=== PATIENT | male | born 1955 | race Caucasian/White ===

== ENCOUNTER 2016-07-07 21:48 | Inpatient (IN) ==
[2016-07-07] MEDS ORDERED: 0.9 % Sodium Chloride 1,000 ML IVC ONE (21:52)
[2016-07-07] MEDS ORDERED: Ipratropium/Albuterol Neb 3 ML IH ONE (21:52)
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
[2016-07-07 22:24] LABS: Basophils # 0.1 K/mcL (0.0-0.2); Basophils % 0.6 %; Eosinophils # 0.6 K/mcL (0.0-0.6); Eosinophils % 4.4 %; Hematocrit 32.6 % (37.5-50.1); Hemoglobin 9.9 g/dL (12.9-16.9); Immature Granulocytes % 3.7 % (0-4); Immature Platelets 1.4 % (1.1-6.1); Lymphocytes # 1.9 K/mcL (0.6-4.6); Lymphocytes % 13.5 %; Mean Corpuscular HGB Conc 30.4 g/dL (31.6-35.5); Mean Corpuscular Hemoglobin 26.3 pg (28.0-33.3); Mean Corpuscular Volume 86.5 fL (83.0-100.0); Mean Platelet Volume 8.4 fL (9.4-12.4); Monocytes # 1.9 K/mcL (0.0-1.3); Monocytes % 13.1 %; Neutrophils # 9.3 K/mcL (1.6-8.9); Platelet Count 570 K/mcL (140-400); Red Blood Count 3.77 M/mcL (4.19-5.50); Red Cell Distribution Width 17.5 % (11.5-14.5); Segmented Neutrophils % 64.7 %
[2016-07-07 22:36] LABS: BUN/Creatinine Ratio 30 (6-26); Blood Urea Nitrogen 26 mg/dL (8-26); Calcium 9.5 mg/dL (8.6-10.8); Carbon Dioxide 31 mEq/L (19-29); Chloride 95 mEq/L (98-109); Glucose 117 mg/dL (70-99); Osmolality,Calculated 292 (280-300); Potassium 3.8 mEq/L (3.5-4.5); Sodium 138 mEq/L (136-145); eGFR For African Americans > 60 (> 60); eGFR For Non-African Americans > 60 (> 60)
[2016-07-07] MEDS ORDERED: Levofloxacin 750 MG/150 ML 750 MG/150 ML BAG IVPB ONE (23:23)
[2016-07-07] MEDS ORDERED: Piperacillin/Tazobactam 3.375 GM in D5% in Water (Mini-Bag+) 100 ML IVPB ONE (23:23)
[2016-07-07] MEDS ORDERED: Vancomycin 1,250 MG in D5% in Water 250 ML IVPB ONE (23:23)
[2016-07-07] MEDS ORDERED: 0.9 % Sodium Chloride 1,000 ML IV ONE (23:24)
[2016-07-08] MEDS ORDERED: Acetaminophen 325 MG TABLET PO PRN (03:18)
[2016-07-08] MEDS ORDERED: Naloxone 0.4 MG/ML INJ IVP PRN (03:18)
[2016-07-08] MEDS ORDERED: Albuterol 2.5 MG/3 ML NEBULIZER IH PRN (03:18)
[2016-07-08] MEDS ORDERED: *HR* OxyCODONE Oral Soln 5 MG/5 ML UD.LIQ GTUBE PRN (03:28)
[2016-07-08] MEDS ORDERED: Scopolamine Patch 1.5 MG PATCH.TD72 TP SCH (03:30)
[2016-07-08] MEDS ORDERED: 0.9 % Sodium Chloride w KCl 20 MEQ/1,000 ML MLS IVC SCH (03:30)
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
[2016-07-08] MEDS ORDERED: Vancomycin (wt based) 1,000 MG VIAL IVPB SCH (04:00)
[2016-07-08] MEDS: Erythromycin OPTH Oint BOTH EYES SCH ×2 (04:09→11:31)
[2016-07-08] MEDS: Ipratropium/Albuterol Neb 3 ML IH SCH ×3 (04:14→16:23)
[2016-07-08 04:32] LABS: Basophils % 0.3 %; Eosinophils # 0.7 K/mcL (0.0-0.6); Eosinophils % 5.6 %; Hematocrit 27.1 % (37.5-50.1); Immature Granulocytes % 3.9 % (0-4); Lymphocytes # 1.7 K/mcL (0.6-4.6); Lymphocytes % 14.3 %; Mean Corpuscular HGB Conc 30.3 g/dL (31.6-35.5); Mean Corpuscular Hemoglobin 26.4 pg (28.0-33.3); Mean Corpuscular Volume 87.1 fL (83.0-100.0); Monocytes # 1.8 K/mcL (0.0-1.3); Monocytes % 15.2 %; Neutrophils # 7.3 K/mcL (1.6-8.9); Platelet Count 419 K/mcL (140-400); Red Blood Count 3.11 M/mcL (4.19-5.50); Red Cell Distribution Width 17.8 % (11.5-14.5); Segmented Neutrophils % 60.7 %
[2016-07-08] MEDS: *HR* Heparin 5,000 UNIT/ML VIAL SQ SCH ×2 (04:37→11:31)
[2016-07-08 04:48] LABS: Alanine Aminotransferase 60 Units/L (0-55); Albumin 2.2 g/dL (3.5-5.0); Albumin/Globulin Ratio 0.5 (1.1-2.2); Alkaline Phosphatase 116 Units/L (38-126); Aspartate Amino Transferase 55 Units/L (5-34); BUN/Creatinine Ratio 28 (6-26); Bilirubin,Total 0.2 mg/dL (0.2-1.2); Blood Urea Nitrogen 22 mg/dL (8-26); Calcium 8.5 mg/dL (8.6-10.8); Carbon Dioxide 30 mEq/L (19-29); Chloride 98 mEq/L (98-109); Globulin 4.8 g/dL (2.4-3.5); Glucose 104 mg/dL (70-99); Hemoglobin 8.2 g/dL (12.9-16.9); Magnesium 1.4 mg/dL (1.6-2.6); Osmolality,Calculated 288 (280-300); Sodium 137 mEq/L (136-145); eGFR For African Americans > 60 (> 60); eGFR For Non-African Americans > 60 (> 60)
[2016-07-08] MEDS ORDERED: Magnesium Sulfate 2 GM in D5% in Water 100 ML IVPB ONE (08:54)
[2016-07-08] MEDS ORDERED: levETIRAcetam 500 MG/5 ML UDC GTUBE SCH (09:00)
[2016-07-08] MEDS ORDERED: *HR* HYDROmorphone 2 MG TABLET GTUBE SCH (09:00)
[2016-07-08] MEDS ORDERED: Multivit/Ca/Min/Fe/FA 1 TAB TABLET GTUBE SCH (09:00)
[2016-07-08] MEDS ORDERED: Levofloxacin 750 MG/150 ML 750 MG/150 ML BAG IVPB SCH (09:00)
[2016-07-08] MEDS ORDERED: 0.9 % Sodium Chloride 1,000 ML IVC SCH (09:00)
[2016-07-08] MEDS ORDERED: Gabapentin 300 MG CAPSULE GTUBE SCH (09:00)
[2016-07-08] MEDS ORDERED: Calcium Acetate 667 MG CAPSULE GTUBE SCH (09:00)
[2016-07-08] MEDS ORDERED: SELENIUM 200 MCG GTUBE SCH (09:00)
[2016-07-08] MEDS ORDERED: SELENIUM 40 MCG/ML IV SCH (09:00)
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
[2016-07-08] MEDS: Piperacillin/Tazobactam 3.375 GM in D5% in Water (Mini-Bag+) 100 ML IVPB SCH ×2 (09:59→16:42)
[2016-07-08] MEDS: Artificial Tears SOLN 15 ML BOTTLE BOTH EYES SCH ×3 (09:59→16:31)
[2016-07-08] MEDS ORDERED: Albuterol 2.5 MG/3 ML NEBULIZER IH SCH (10:00)
[2016-07-08] MEDS ORDERED: Lidocaine -MPF 1% 5 ML AMPUL INFILT ONE (10:22)
[2016-07-08] MEDS: Acetylcysteine 10% 2 ML INHSOL IH SCH ×2 (10:36→16:23)
[2016-07-08] MEDS ORDERED: Vancomycin 1,500 MG in D5% in Water 250 ML IVPB SCH (11:00)
--- NOTE | 2016-07-08 15:03 | Electrocardiograph Report ---
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
[2016-07-08 15:42] VITALS: BP 104/58
[2016-07-08] MEDS ORDERED: Aminoglycoside Consult 1 EACH MC ONE (18:19)
[2016-07-08] MEDS ORDERED: Famotidine 20 MG TABLET GTUBE SCH (21:00)
[2016-07-08] MEDS ORDERED: Ascorbic Acid 500 MG TABLET GTUBE SCH (21:00)
[2016-07-08] MEDS ORDERED: XIFAXAN 550 MG GTUBE SCH (21:00)
[2016-07-09 00:26] LABS: Acinetobacter baumannii by PCR Not Detected (Not Detect); Candida albicans by PCR Not Detected (Not Detect); Candida glabrata by PCR Not Detected (Not Detect); Candida krusei by PCR Not Detected (Not Detect); Candida parapsilosis by PCR Not Detected (Not Detect); Candida tropicalis by PCR Not Detected (Not Detect); Escherichia coli by PCR Not Detected (Not Detect); Klebsiella oxytoca by PCR Not Detected (Not Detect); Klebsiella pneumoniae by PCR Not Detected (Not Detect); Pseudomonas aeruginosa by PCR Not Detected (Not Detect); Serratia marcescens by PCR Not Detected (Not Detect); Staphylococcus aureus by PCR Not Detected (Not Detect); Streptococcus agalactiae(B)PCR Not Detected (Not Detect); Streptococcus by PCR Not Detected (Not Detect); Streptococcus pneumoniae PCR Not Detected (Not Detect); Streptococcus pyogenes (A) PCR Not Detected (Not Detect); vanA/B Vancomycin-Resist Genes Not Detected (Not Detect)
[2016-07-09 02:28] LABS: Enterococcus by PCR ***DETECTED*** (Not Detect)
== END 2016-07-08 18:20 | disposition short-term general hospital (02) | DRG 871 ==
LOC: 2NNU 21:48 → EMEROO 21:48 → 2NNU 07-08 00:50
PROVIDERS: ADMIT Internal Medicine; ATTEND Internal Medicine

== ENCOUNTER 2016-10-09 02:10 | Observation (INO) ==
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
[2016-10-09] MEDS ORDERED: *HR* LORazepam 2 MG/ML VIAL IM STA (03:44)
[2016-10-09] MEDS ORDERED: *HR* FentaNYL (PF) 100 MCG/2 ML VIAL IM ONE (03:53)
[2016-10-09 05:59] LABS: Basophils % 0.4 %; Eosinophils # 0.1 K/mcL (0.0-0.6); Eosinophils % 1.5 %; Hematocrit 39.5 % (37.5-50.1); Hemoglobin 13.2 g/dL (12.9-16.9); Immature Granulocytes % 0.4 % (0-4); Lymphocytes # 2.1 K/mcL (0.6-4.6); Lymphocytes % 23.1 %; Mean Corpuscular HGB Conc 33.4 g/dL (31.6-35.5); Mean Corpuscular Hemoglobin 28.2 pg (28.0-33.3); Mean Corpuscular Volume 84.4 fL (83.0-100.0); Mean Platelet Volume 9.2 fL (9.4-12.4); Monocytes # 0.9 K/mcL (0.0-1.3); Monocytes % 10.1 %; Platelet Count 282 K/mcL (140-400); Red Blood Count 4.68 M/mcL (4.19-5.50); Red Cell Distribution Width 13.8 % (11.5-14.5); Segmented Neutrophils % 64.5 %
[2016-10-09 06:10] LABS: BUN/Creatinine Ratio 8 (6-26); Blood Urea Nitrogen 8 mg/dL (8-26); Calcium 9.8 mg/dL (8.6-10.8); Carbon Dioxide 23 mEq/L (19-29); Chloride 105 mEq/L (98-109); Glucose 90 mg/dL (70-99); Osmolality,Calculated 284 (280-300); Potassium 3.8 mEq/L (3.5-4.5); Sodium 138 mEq/L (136-145); eGFR For African Americans > 60 (> 60); eGFR For Non-African Americans > 60 (> 60)
[2016-10-09 06:20] LABS: Neutrophils # 5.9 K/mcL (1.6-8.9)
[2016-10-09 06:22] LABS: Platelet Estimate Normal (Normal)
[2016-10-09] MEDS ORDERED: Naloxone 0.4 MG/ML INJ IVP PRN (08:11)
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
[2016-10-09] MEDS ORDERED: *HR* Enoxaparin 80 MG/0.8 ML SYRINGE SQ SCH (09:30)
[2016-10-09 09:31] VITALS: BP 118/78
[2016-10-09] MEDS ORDERED: *HR* OxyCODONE Immed Rel 5 MG TABLET PO PRN (09:50)
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
[2016-10-09] MEDS ORDERED: Artificial Tears SOLN 15 ML BOTTLE OP SCH (13:00)
[2016-10-09] MEDS ORDERED: Gabapentin 300 MG CAPSULE PO SCH (15:00)
--- NOTE | 2016-10-09 16:32 | Event Note ---
Date of Encounter: 10/09/16 Time of Encounter: 16:00 Mr. Desouza has decided to leave AMA due to wanting to be seen by the ENT group at [facility] who placed his tracheostomy originally. He reports that he has an appointment with them on Monday, October 12, 2016. I offered to have the patient transferred to this ENT group in [place] to avoid having the patient leave AMA , however when he was told that he would be taken by squad and he refused stating that he had several things to do prior to Monday and couldn't be transported from [place]. Patient stated he wanted to travel by car with a friend on Monday. I discussed the risks and ramifications of his SOB and decreased O2 status related to the tracheostomy mechanical complication stemming from the cannula being ill-fitting. I also explained the dangers of not addressing this tracheostomy mechanical complication while he is currently admitted. Patient stated that he would remove the cannula for better airflow once he left. I strongly advised him against this and again reiterated the risks associated with leaving without having the problem resolved properly. Patient stated he understood the risks of leaving AMA at this time and is not suffering from impaired cognition during this admission. Patient's friend and his [place] nurse were present during this conversation. Patient's friend stated that Mr. Desouza would be staying at her house and she would closely monitor him and bring him back to the ED if he began to experience respiratory distress. I advised her to call squad and not attempt to bring him back to the ED herself. She acknowledged and agreed to this. Patient signed AMA papers.
[2016-10-09] MEDS ORDERED: lamoTRIgine 100 MG TABLET PO SCH (21:00)
[2016-10-09] MEDS ORDERED: clonazePAM 1 MG TABLET PO SCH (21:00)
[2016-10-10] MEDS ORDERED: clonazePAM 0.5 MG TABLET PO SCH (09:00)
== END 2016-10-09 15:42 | disposition left against medical advice (07) ==
LOC: 3ANU 02:10 → EMEROO 02:10 → 3ANU 09:02
PROVIDERS: ADMIT Internal Medicine; ATTEND Internal Medicine